=== PATIENT | female | born 1995 | race Caucasian/White ===

== ENCOUNTER 2020-06-27 14:37 | Outpatient (REF) | payer OTHER, SELFPAY | END 2020-06-27 14:38 | disposition home or self-care (01) | LOC: HO.LAB 14:37 | PROVIDERS: Visit Provider Nurse Practitioner Family | DX: Z20.828 Contact with and (suspected) exposure to other viral communicable diseases (principal) | CPT/HCPCS: U0003 ==

== ENCOUNTER 2021-12-07 21:47 | Emergency (ER) | payer OTHER, SELFPAY ==
[2021-12-07 21:49] VITALS: BP 125/79; PULSE 74; RESP 18; TEMP 36.9; O2SAT 99; BMI 26.5
--- NOTE | 2021-12-07 22:09 | ED.EAR ---
HPI - Ear Problem General Chief complaint: Ear Problems Stated complaint: ear infection Source: patient Mode of arrival: ambulatory Limitations: no limitations History of Present Illness HPI Narrative: 26-year-old female presents with right-sided ear pain for approximately 24 hours. MD Complaint: ear pain Location: right ear Duration: constant Severity: moderate Relieving factors: nothing Exacerbating factors: chewing and palpation Discharge from ear: no Treatment prior to arrival: none Related Data Home Medications Medication Instructions Recorded Confirmed budesonide-formoterol HFA 160 2 puff PO BID 05/18/20 01/04/21 mcg-4.5 mcg/actuation aerosol inhaler clonazepam 1 mg tablet 1 mg PO BID PRN 05/18/20 01/04/21 fluoxetine 10 mg capsule 10 mg PO DAILY 05/18/20 01/04/21 valacyclovir 500 mg tablet 500 mg PO DAILY 05/18/20 01/04/21 Previous Rx's Medication Instructions Recorded amoxicillin 875 mg-potassium 1 tab PO Q12H 7 Days #14 tab 12/07/21 clavulanate 125 mg tablet fluconazole 150 mg tablet 150 mg PO Q3D #2 tab 12/07/21 (Diflucan) Allergies Allergy/AdvReac Type Severity Reaction Status Date / Time hydrocodone [HYDROCODONE] Allergy Intermediate HIVES Verified 12/07/21 21:49 acetaminophen [From VICODIN] Allergy Unknown HIVES Verified 12/07/21 21:49 Hydrocodone Bitartrate Allergy Unknown hives Uncoded 12/07/21 21:49 Review of Systems Review of Systems: Constitutional: No Fever, No Chills ENT/Mouth: Positive right Ear Pain, No Hoarseness, No sore throat Eyes: No Eye Pain, No Swelling, No Redness, No Foreign Body Cardiovascular: No Chest Pain, No SOB Respiratory: No Cough, No Dyspnea Gastrointestinal: No Nausea, No Vomiting, No Diarrhea, No abdominal Pain Genitourinary: No Dysuria, No Hematuria Musculoskeletal: No joint pain, No Myalgias, No Joint Swelling Skin: No Skin lacerations, No rash Neuro: No Weakness, No Numbness, No Paresthesias, No Loss of Consciousness, No Dizziness, No Headache Psych: No Anxiety/Panic, No Depression Heme/Lymph: no easy bruising, no Lymphadenopathy Endocrine: No Polyuria, No Polydipsia Yes all other systems are reviewed and are negative [facility] Past Medical History Attestation statement: The following information was validated with the patient. Source: old records reviewed Social History Social History Advance Directives: No Advance Directives Information Provided: Yes Patient : No Physical Exam Vital Signs: Vital Signs: Last Vital Signs Temp 98.5 F 12/07/21 21:49 Pulse 74 12/07/21 21:49 Resp 18 12/07/21 21:49 BP 125/79 12/07/21 21:49 Pulse Ox 99 12/07/21 21:49 BMI result Body Mass Index 26.5 Appearance: Alert. Oriented X3. No acute distress. Eyes: Pupils equal, round and reactive to light. ENT: Pharynx normal. Right tympanic membrane bulging and erythematous. Left tympanic membrane intact. Neck: Normal inspection. Neck supple. No mastoid tenderness. Cervical lymphadenopathy. CVS: Normal heart rate and rhythm. Pulses normal. Respiratory: No respiratory distress. Breath sounds normal. Abdomen: Soft and nontender. Skin: Skin warm and dry. Normal skin color. Normal skin turgor. Extremities: No lower extremity edema. Gait well-balanced well coordinated. Neuro: No motor deficit. No sensory deficit. Cranial nerves 2-12 intact Course Course Course Narrative: 26-year-old female presents with right-sided stabbing ear pain for approximately 24 hours. Physical exam consistent with otitis media to the right side. Will treat with Augmentin. No mastoid tenderness. Afebrile, appears nontoxic. Patient verbalized understanding of and agrees to plan of care to discharge home. Verbalized understanding of signs and symptoms indicating need for emergent intervention MDM - Ear Differential Diagnosis Differential diagnosis: Likely otitis externa, otitis media, foreign body in ear, ruptured TM and cerumen impaction Medical Records Attestation: I reviewed the patient's medical records. Discharge Plan Discharge Clinical Impression: Otitis media Patient Disposition: Home, Self-Care Instructions: Ear Infection (ED) Additional Instructions: You were evaluated for ear pain. You have otitis media. Please take Augmentin 875 mg twice a day for the next 7 days. I prescribed Diflucan. Please follow the instructions. Take Tylenol and Motrin as needed for pain management Thank you for choosing this emergency department for evaluation. Please follow-up with primary care physician as needed. Return to the emergency department for any new, concerning, or worsening symptoms. Prescriptions: New amoxicillin-pot clavulanate 875-125 mg tablet 1 tab PO Q12H 7 Days Qty: 14 0RF fluconazole [Diflucan] 150 mg tablet 150 mg PO Q3D Qty: 2 1RF Rx Instructions: may repeat second dose 72 hrs after first dose if symptoms persist No Action clonazepam 1 mg tablet 1 mg PO BID PRN0RF fluoxetine 10 mg capsule 10 mg PO DAILY 0RF valacyclovir 500 mg tablet 500 mg PO DAILY 0RF budesonide-formoterol 160-4.5 mcg/actuation HFA aerosol inhaler 2 puff PO BID 0RF Interventions: ED Discharge Assessment Last Done: 12/07/21 23:08 Discharge Date/Time: 12/07/21 23:11
[2021-12-07] MEDS: Amoxicillin/Potassium Clav 875 MG TABLET PO (22:37)
== END 2021-12-07 23:11 | disposition home or self-care (01) ==
PROVIDERS: Emergency Provider Internal Medicine; PCP Internal Medicine
DX: H66.91 Otitis media, unspecified, right ear (principal)
CPT/HCPCS: 99283

== ENCOUNTER 2021-12-18 09:53 | Emergency (ER) | payer OTHER, SELFPAY ==
--- NOTE | ~2021-12-18 | XR_ITS ---
EXAMINATION: XR CHEST CLINICAL INFORMATION: Right-sided Rales COMPARISON: January 2020. TECHNIQUE: 2 views of the chest were obtained. FINDINGS: No significant abnormality is noted involving the heart, lungs, mediastinum, bony thorax or soft tissues. XR/XR chest 2V IMPRESSION: Unremarkable examination.
[2021-12-18 10:06] VITALS: BP 127/81; PULSE 85; RESP 18; TEMP 36.8; O2SAT 98; BMI 26.5
[2021-12-18 10:50] LABS: COVID-19 Test Negative (Negative)
[2021-12-18 10:51] LABS: IDNOW Serial# 9DB6401D; Influenza A Negative (Negative); Influenza B2 Negative (Negative)
--- NOTE | 2021-12-18 13:07 | ED.GENADULT ---
HPI - General Adult General Chief complaint: General Medical Stated complaint: covid symptoms Time Seen by Provider: 12/18/21 13:07 Source: patient Mode of arrival: ambulatory Limitations: no limitations History of Present Illness HPI narrative: patient with recent middle ear infection, while in [facility] she got URI. Patient now with sore throat and cough. She has tested negative at home Onset (ago): day(s) Severity: mild Pain Consistency: constant Associated symptoms: cough Related Data Home Medications Medication Instructions Recorded Confirmed budesonide-formoterol HFA 160 2 puff PO BID 05/18/20 01/04/21 mcg-4.5 mcg/actuation aerosol inhaler clonazepam 1 mg tablet 1 mg PO BID PRN 05/18/20 01/04/21 fluoxetine 10 mg capsule 10 mg PO DAILY 05/18/20 01/04/21 valacyclovir 500 mg tablet 500 mg PO DAILY 05/18/20 01/04/21 Previous Rx's Medication Instructions Recorded amoxicillin 875 mg-potassium 1 tab PO Q12H 7 Days #14 tab 12/07/21 clavulanate 125 mg tablet fluconazole 150 mg tablet 150 mg PO Q3D #2 tab 12/07/21 (Diflucan) naproxen 500 mg tablet (Naprosyn) 500 mg PO BID #20 tab 12/18/21 bflpbxeqbwsai-HX-droqoemhdfl 5 10 ml PO Q4H #120 ml 12/18/21 mg-10 mg-100 mg/5 mL oral liquid Allergies Allergy/AdvReac Type Severity Reaction Status Date / Time hydrocodone [HYDROCODONE] Allergy Intermediate HIVES Verified 12/07/21 21:49 acetaminophen [From VICODIN] Allergy Unknown HIVES Verified 12/07/21 21:49 Hydrocodone Bitartrate Allergy Unknown hives Uncoded 12/07/21 21:49 Review of Systems Constitutional: Constitutional: Reports no additional constitutional complaints Eyes: Eyes: Reports no additional eye complaints ENT: Denies dizziness Cardiovascular: Cardiovascular: Reports no additional cardiovascular complaints Respiratory: Respiratory: Reports as per HPI Gastrointestinal: Gastrointestinal: Reports no additional gastrointestinal complaints Genitourinary: Genitourinary: Reports no additional female genitourinary complaints Musculoskeletal: Musculoskeletal: Reports no additional musculoskeletal complaints Integumentary/Breasts: Skin/Breast: Denies rash Neurologic: Reports system reviewed and no additional complaints, except as documented, Denies dizziness and Denies Sensory deficit (Neuro) Psychiatric: Psychiatric: Denies anxiety [facility] Social History Social History Advance Directives: No Advance Directives Information Provided: No Physical Exam ED Vital Signs: Vital Signs - 24 hr 12/18/21 10:06 12/18/21 13:26 Temperature 98.3 F Pulse Rate 85 84 Respiratory Rate 18 18 Blood Pressure 127/81 Pulse Oximetry 98 BMI result Body Mass Index 26.5 Const General: healthy appearing Nutritional Appearance: average body habitus Orientation/consciousness: oriented to person and patient oriented x3 Limitations: no limitations HENMT Other: Bilateral tmj pain Head: Yes normal to inspection Ears: external ears normal General nose exam: Normal external nose present Mouth: Normal oral and palatal mucosa present and oropharynx normal Throat: Yes posterior oropharynx normal Eyes General: appearance normal, both eyes and all related structures Neck Neck: Yes normal visual inspection Chest Chest palpation & inspection: normal inspection of the chest Resp Other: right sided rales and rhonchi Cardio Jugular venous distension: no JVD Rate: regular rate Rhythm: regular rhythm Heart sounds: S1 normal heart sound present and S2 normal heart sound present GI Inspection: Yes normal to inspection Palpation (GI): Soft to palpation, nontender and No hepatosplenomegaly present Auscultation: normal bowel sounds General: Yes no CVA tenderness Back/Spine/Pelvis Back: no CVA tenderness Skin General skin exam: no rashes or lesions noted Neuro General: oriented to person and patient oriented x3 Cranial nerves: Yes CN's II-XII intact bilaterally Motor exam (neuro): 5/5 motor strength present throughout Sensory Exam: No Sensory deficit (Neuro) Extrem General: Yes normal to inspection Psych Appearance: grossly normal Course Reevaluation(s) Reevaluation #1: lungs improved, no pneumonia on xray, will dc on the albuterol MDI and robitussion and NSAIDS for the jaw pain Time: 13:46 Medical Decision Making Lab Data Labs: Lab Results 12/18/21 12/18/21 Range/Units 10:10 10:11 COVID-19 (YARI) Negative (Negative) COVID-19 Clin Com See Note Influenza Type A (KATY) Negative (Negative) Influenza Type B (KATY) Negative (Negative) Influenza A & B Note See Note Imaging Data Chest x-ray: Radiologist's impression: FINDINGS: No significant abnormality is noted involving the heart, lungs, mediastinum, bony thorax or soft tissues. XR/XR chest 2V IMPRESSION: Unremarkable examination. Discharge Plan Discharge Clinical Impression: Acute upper respiratory infection, Temporal mandibular joint disorder Patient Disposition: Home, Self-Care Instructions: Upper Respiratory Infection (ED), Temporomandibular Disorder (ED) Prescriptions: New naproxen [Naprosyn] 500 mg tablet 500 mg PO BID Qty: 20 0RF [id number] 5-10-100 mg/5 mL liquid 10 ml PO Q4H Qty: 120 0RF No Action amoxicillin-pot clavulanate 875-125 mg tablet 1 tab PO Q12H 7 Days Qty: 14 0RF fluconazole [Diflucan] 150 mg tablet 150 mg PO Q3D Qty: 2 1RF Rx Instructions: may repeat second dose 72 hrs after first dose if symptoms persist clonazepam 1 mg tablet 1 mg PO BID PRN0RF fluoxetine 10 mg capsule 10 mg PO DAILY 0RF valacyclovir 500 mg tablet 500 mg PO DAILY 0RF budesonide-formoterol 160-4.5 mcg/actuation HFA aerosol inhaler 2 puff PO BID 0RF Referrals: Rohan Galindo MD [Primary Care Provider] - 1 week Stand Alone Forms: Work/School Release
[2021-12-18 13:26] VITALS: PULSE 84; RESP 18; O2SAT 97
[2021-12-18] MEDS: Albuterol Sulfate 90 MCG 8 GM INHALER 4 PUFF INHALE (13:26)
== END 2021-12-18 13:50 | disposition home or self-care (01) ==
PROVIDERS: Emergency Provider Emergency Medicine; PCP Internal Medicine
DX: J06.9 Acute upper respiratory infection, unspecified (principal); M26.603 Bilateral temporomandibular joint disorder, unspecified; Z20.822 Contact with and (suspected) exposure to COVID-19
CPT/HCPCS: 71046; 87502; 87635; 94640; 99284

== ENCOUNTER 2022-01-06 12:00 | Outpatient (REF) | payer OTHER, SELFPAY ==
[2022-01-06 12:32] LABS: COVID-19 Test Negative (Negative); IDNOW Serial# 16C4AD1C
== END 2022-01-06 12:01 | disposition home or self-care (01) ==
LOC: HO.LAB 12:00
PROVIDERS: Visit Provider Internal Medicine
DX: Z20.822 Contact with and (suspected) exposure to COVID-19 (principal)
CPT/HCPCS: 87635; C9803

== ENCOUNTER 2023-01-15 10:10 | Emergency (ER) | payer OTHER, SELFPAY ==
[2023-01-15 10:17] VITALS: BP 120/85; PULSE 99; RESP 18; TEMP 35.9; O2SAT 98; BMI 24.0
[2023-01-15 10:56] LABS: MANUAL DIFF FLAG NO
[2023-01-15 10:58] LABS: Basophils Percent Auto 0.3 % (0-2); Eosinophils Percent Auto 0.2 % (0-4); Hematocrit 42.2 % (37.0-47.0); Hemoglobin 14.2 g/dl (12.0-16.0); Imm Gran Abs Auto 0.05 X10*3/uL (0.00-0.03); Imm Gran Pct Auto 0.4 % (0.0-0.4); Lymphocytes Absolute Auto 1.6 X10*3/uL (1.2-4.9); Lymphocytes Percent Auto 12.6 % (20-40); Mean Corpuscular HGB Conc 33.6 g/dl (31.0-35.0); Mean Corpuscular Hemoglobin 29.4 pg (27.0-33.0); Mean Corpuscular Volume 87.4 fL (80.0-98.0); Mean Platelet Volume 9.5 fL (9.4-12.3); Monocytes Absolute Auto 0.8 X10*3/uL (0.1-1.2); Monocytes Percent Auto 6.6 % (2-11); Neutrophils Percent Auto 79.9 % (45-73); Platelet Count 263 X10*3/uL (160-400); Red Blood Count 4.83 X10*6/uL (4.20-5.50); Red Cell Distribution Width 13.4 % (11.0-16.0); White Blood Count 12.5 X10*3/uL (4.8-10.8)
[2023-01-15 11:37] LABS: Anion Gap 12 (12-20); Blood Urea Nitrogen 7 mg/dL (9-16); Calcium 9.7 mg/dL (8.4-10.2); Carbon Dioxide 23 mmol/L (22-29); Chloride 106 mmol/L (96-108); Creatinine Clr Calc Pharmacy 93.2; Estimated Glomerular Filt Rate > 60; Glucose Random 94 mg/dL (60-115); Potassium 4.1 mmol/L (3.3-5.1); Sodium 137 mmol/L (135-145)
[2023-01-15 12:26] VITALS: BP 132/77; PULSE 82; RESP 16; TEMP 37.1; O2SAT 98
--- NOTE | 2023-01-15 12:35 | ED.NAVMDI ---
HPI - Nausea/Vomiting/Diarrhea General Chief complaint: Nausea/Vomiting/Diarrhea Stated complaint: 7 wks vomiting diarrhea Time Seen by Provider: 01/15/23 11:50 Source: patient Mode of arrival: ambulatory Limitations: no limitations History of Present Illness HPI Narrative: 27-year-old G 2p1 who is currently 7 weeks with last menstrual period of November 23 who presents to the ER for evaluation of intractable nausea, vomiting and epigastric pain for the last 2 weeks. She follows with OB at [facility] and was recently there for similar complaints. She was recently started on B6 and Unisom however only hot die picker the prescription last night sore 1st dose was last night. She states she has nausea and epigastric abdominal pain daily. It comes and goes. It feels like a ?metal ball.? She has been taking Tums for her epigastric pain with relief. She admits to taking 13 Tums last night for her pain. MD elicited complaint: nausea, vomiting and abdominal pain Onset (ago): week(s) Description of vomiting: food contents Associated nausea: Yes Associated abdominal pain: Yes Location of pain: epigastric Pain consistency: intermittent Severity: severe Quality: aching and sharp Exacerbating factors: eating Relieving factors: vomiting Associated symptoms: nausea/vomiting Related Data Home Medications Medication Instructions Recorded Confirmed budesonide-formoterol HFA 160 2 puff PO BID 05/18/20 01/04/21 mcg-4.5 mcg/actuation aerosol inhaler clonazepam 1 mg tablet 1 mg PO BID PRN 05/18/20 01/04/21 fluoxetine 10 mg capsule 10 mg PO DAILY 05/18/20 01/04/21 valacyclovir 500 mg tablet 500 mg PO DAILY 05/18/20 01/04/21 Previous Rx's Medication Instructions Recorded amoxicillin 875 mg-potassium 1 tab PO Q12H 7 days #14 tabs 12/07/21 clavulanate 125 mg tablet fluconazole 150 mg tablet 150 mg PO Q3D 2 doses #2 tabs 12/07/21 (Diflucan) naproxen 500 mg tablet (Naprosyn) 500 mg PO BID #20 tabs 12/18/21 iudmbjaqvfavk-IC-hxvnzvqwqgg 5 10 ml PO Q4H #120 mL 12/18/21 mg-10 mg-100 mg/5 mL oral liquid omeprazole 20 mg capsule,delayed 20 mg PO DAILY #14 caps 01/15/23 release Allergies Allergy/AdvReac Type Severity Reaction Status Date / Time hydrocodone [HYDROCODONE] Allergy Intermediate HIVES Verified 05/14/22 16:12 acetaminophen [From VICODIN] Allergy Unknown HIVES Verified 05/14/22 16:12 Hydrocodone Bitartrate Allergy Unknown hives Uncoded 05/14/22 16:12 Review of Systems Review of Systems: Yes all other systems are reviewed and are negative Gastrointestinal: Gastrointestinal: Reports nausea PMFSH Social History Social History Smoked in Last 30 Days: No Use of substances other than those prescribed or required for medical reasons: Yes Substance Use Type: Marijuana Last Used Substance: Weeks (ago) Advance Directives: No Advance Directives Information Provided: Yes Physical Exam Vital Signs: Vital Signs: Last Vital Signs Temp 98.0 F 01/15/23 14:20 Pulse 82 01/15/23 14:20 Resp 14 01/15/23 14:20 BP 116/66 01/15/23 14:20 Pulse Ox 100 01/15/23 14:20 O2 Del Method Room Air 01/15/23 14:20 BMI result Body Mass Index 24.0 Appearance: Alert. Oriented X3. No acute distress. Head: normocephalic, atraumatic. Eyes: Pupils equal, round and reactive to light. ENT: Pharynx normal. No tonsillar swelling or exudate. Neck: Normal inspection. Neck supple. CVS: Normal heart rate and rhythm. Pulses normal. Respiratory: No respiratory distress. Breath sounds normal. Abdomen: Soft with epigastric tenderness, no rebound or guarding. Normoactive bowel sounds. Pelvic deferred. Skin: Skin warm and dry. Normal skin color. Normal skin turgor. No rashes. Extremities: No lower extremity edema. No joint swelling. Neuro/psych: Oriented X 3. No motor deficit. No sensory deficit. CN II-XII intact. Normal speech and cognition. Medications Administered Discontinued Medications Generic Name Dose Route Start Last Admin Trade Name Freq PRN Reason Stop Dose Admin Sodium Chloride 1,000 mls @ 999 mls/hr 01/15/23 12:00 01/15/23 14:09 Ns IVCONT 01/15/23 13:00 Infused .Q1H1M KAMI Infusion Omeprazole 20 mg 01/15/23 13:58 01/15/23 14:10 Omeprazole 20 Mg Capsule. PO 01/15/23 13:59 20 mg ONCE ONE Administration Ondansetron HCl 4 mg 01/15/23 11:51 01/15/23 12:42 Ondansetron Hcl 4 Mg/2 Ml Vial IVPUSH 01/15/23 11:52 4 mg ONCE ONE Administration Medical Decision Making Medical Decision Making [facility] Narrative: 27-year-old female currently approximately 7 weeks presents with nausea, vomiting, epigastric pain. Lab workup today showing a mild leukocytosis, 12.5, most likely due to vomiting and reactive in nature.Her electrolytes and kidney function are normal. She feels dehydrated. She was given IV fluids and Zofran. She is tolerating p.o.. She was also given a PPI for GERD and epigastric pain. Pain is improved. She had no right upper quadrant tenderness on examination. She is stable for discharge home with dietary modifications, continuation of B6 and Unisom, will add PPI and have her follow-up with her OB. Patient is stable for discharge home and she agrees with plan. Differential Diagnosis Differential Diagnoses: The differential diagnosis associated with the presentation includes Hyperemesis gravidarum, normal nausea and vomiting in 1st trimester of , dehydration, electrolyte abnormality, hypercalcemia due to exogenous calcium intake. Lab Data [facility] Lab Attestation statement: I reviewed the patient's lab results. Mild leukocytosis, likely reactive due to vomiting. No evidence of dehydration or major metabolic derangement 01/15/23 10:39 01/15/23 10:39 Labs: Lab Results 01/15/23 01/15/23 01/15/23 Range/Units 10:39 10:39 14:18 WBC 12.5 H (4.8-10.8) X10*3/uL RBC 4.83 (4.20-5.50) X10*6/uL Hgb 14.2 (12.0-16.0) g/dl Hct 42.2 (37.0-47.0) % MCV 87.4 (80.0-98.0) fL MCH 29.4 (27.0-33.0) pg MCHC 33.6 (31.0-35.0) g/dl RDW 13.4 (11.0-16.0) % Plt Count 263 (160-400) X10*3/uL MPV 9.5 (9.4-12.3) fL Immature Gran % (Auto) 0.4 (0.0-0.4) % Neut % (Auto) 79.9 H (45-73) % Lymph % (Auto) 12.6 L (20-40) % Luce % (Auto) 6.6 (2-11) % Eos % (Auto) 0.2 (0-4) % Baso % (Auto) 0.3 (0-2) % Lymph # (Auto) 1.6 (1.2-4.9) X10*3/uL Luce # (Auto) 0.8 (0.1-1.2) X10*3/uL Eos # (Auto) 0.0 (0.0-0.4) X10*3/uL Baso # (Auto) 0.0 (0.0-0.2) X10*3/uL Abs Immat Gran (auto) 0.05 H (0.00-0.03) X10*3/uL Absolute Neuts (auto) 10.0 H (2.0-8.3) x10*3/uL Absolute Nucleated RBC 0.000 (0.0-0.012) X10*3/uL Nucleated RBC % (auto) 0.0 (0.0-0.2) /100WBC Sodium 137 (135-145) mmol/L Potassium 4.1 (3.3-5.1) mmol/L Chloride 106 (96-108) mmol/L Carbon Dioxide 23 (22-29) mmol/L Anion Gap 12 (12-20) BUN 7 L (9-16) mg/dL Creatinine 0.71 (0.5-1.4) mg/dL Estim Creat Clear Calc 93.2 Estimated GFR > 60 Random Glucose 94 (60-115) mg/dL Calcium 9.7 (8.4-10.2) mg/dL Urine Color Yellow Urine Appearance Clear Urine pH 6.5 (5.0-9.0) Ur Specific [place] 1.020 (1.005-1.025) Urine Protein Negative (Neg-Trace) mg/dL Urine Glucose (UA) Negative (Negative) mg/dL Urine Ketones 80 (Negative) mg/dL Urine Blood Negative (Negative) Urine Nitrite Negative (Negative) Ur Leukocyte Esterase Negative (Negative) External Record Review External record reviewed: Prior outpatient labs Prescription Management I considered prescription management with: Other (PPI) Critical Care Time Critical Care Time Critical Care Time: No Discharge Plan Discharge Clinical Impression: Nausea and vomiting during , Gastroesophageal reflux disease Patient Disposition: Home, Self-Care Instructions: Nausea and Vomiting in (ED), Gastroesophageal Reflux Disease (DC) Additional Instructions: Your lab workup today was unremarkable. Your urine test was negative for infection. Your tested for gonorrhea and chlamydia - IF YOU ARE POSITIVE, we will call you to start treatment Continue B6 and Unisom every night to help with nausea Eat crackers right when you wake up Start the prescribed antacid medication as prescribed, take 1st thing in the morning Avoid foods that are greasy, acidic and spicy Continue TUMS as needed but only as the package instructs. Follow up with your SENIOR ANALYST DEVELOPER If you develop new or worsening symptoms call 911 or come back to the ER for further evaluation. Prescriptions: New omeprazole 20 mg capsule,delayed release(DR/EC) 20 mg PO DAILY Qty: 14 0RF No Action naproxen [Naprosyn] 500 mg tablet 500 mg PO BID Qty: 20 0RF snpwgldhaugwh-QW-jutxbotqrni 5-10-100 mg/5 mL liquid 10 ml PO Q4H Qty: 120 0RF amoxicillin-pot clavulanate 875-125 mg tablet 1 tab PO Q12H 7 Days Qty: 14 0RF fluconazole [Diflucan] 150 mg tablet 150 mg PO Q3D Qty: 2 1RF Rx Instructions: may repeat second dose 72 hrs after first dose if symptoms persist clonazepam 1 mg tablet 1 mg PO BID PRN fluoxetine 10 mg capsule 10 mg PO DAILY valacyclovir 500 mg tablet 500 mg PO DAILY budesonide-formoterol 160-4.5 mcg/actuation HFA aerosol inhaler 2 puff PO BID Referrals: Rohan Galindo MD [Primary Care Provider] - Stand Alone Forms: Work/School Release
[2023-01-15] MEDS: ondansetron HCL 4 MG/2 ML VIAL IVPUSH (12:42)
[2023-01-15] MEDS: 0.9 % Sodium Chloride 1,000 ML 999 ML IVCONT (12:42)
[2023-01-15] MEDS: Omeprazole 20 MG CAPSULE.DR PO (14:10)
[2023-01-15 14:20] VITALS: BP 116/66; PULSE 82; RESP 14; TEMP 36.7; O2SAT 100
[2023-01-15 14:28] LABS: Appearance Urine Clear; Color Urine Yellow; Glucose Urine UA Negative (Negative); Leukocyte Esterase Urine Negative (Negative); Nitrite Urine Negative (Negative); PH 6.5 (5.0-9.0); Urine Blood Negative (Negative); Urine Ketones 80 mg/dL (Negative); Urine Protein Negative (Neg-Trace)
[2023-01-15 15:09] VITALS: BP 119/74; PULSE 89; RESP 16; TEMP 37; O2SAT 100
[2023-01-15 16:20] LABS: CT PCR NOT DETECTED (Not Detect.); NG PCR NOT DETECTED (Not Detect.)
== END 2023-01-15 15:21 | disposition home or self-care (01) ==
PROVIDERS: Physician Assistant; Emergency Provider Emergency Medicine; PCP Internal Medicine
DX: O21.0 Mild hyperemesis gravidarum (principal); R10.13 Epigastric pain; Z3A.01 Less than 8 weeks gestation of pregnancy; Z79.899 Other long term (current) drug therapy
CPT/HCPCS: 0353U; 36415; 80048; 81003; 85025; 96361; 96374; 99284; J2405

== ENCOUNTER 2023-02-02 17:23 | Outpatient (REF) | payer OTHER, SELFPAY ==
[2023-02-02 18:12] LABS: Influenza A PCR NEGATIVE (Negative); Influenza B PCR NEGATIVE (Negative); Resp Syncy Virus RNA Qual PCR NEGATIVE (Negative); SARS COV2 PCR INHOUSE NEGATIVE (Negative)
== END 2023-02-02 17:24 | disposition home or self-care (01) ==
LOC: HO.LNP 17:23
PROVIDERS: Visit Provider Internal Medicine
DX: Z20.822 Contact with and (suspected) exposure to COVID-19 (principal); R43.9 Unspecified disturbances of smell and taste
CPT/HCPCS: 0241U

== ENCOUNTER 2023-05-29 13:00 | Outpatient (AMB) | payer OTHER, SELFPAY ==
[2023-05-29 13:04] VITALS: BP 128/74; BMI 31.5
--- NOTE | 2023-05-29 13:04 | MHC.PC.OV ---
Vital Signs 05/29/23 13:04 Height 5 ft 2 in Weight 172 lb 2 oz BMI 31.5 BP 128/74 Blood Pressure Location Lt brachial Position Sitting Intake Visit Reasons: ongoing back pain Allergies hydrocodone [HYDROCODONE] Allergy (Intermediate, Verified 05/29/23 13:06) HIVES acetaminophen [From VICODIN] Allergy (Unknown, Verified 05/29/23 13:06) HIVES Hydrocodone Bitartrate Allergy (Unknown, Uncoded 02/02/23 14:48) hives Tobacco use date assessed: 05/29/23 Dental Screening Dental Screen Date: 05/29/23 Did you have a dental visit in the last 12 months?: Yes Did you have a dental problem in the last 6 months where you did not have access to dental care?: No Was dental information given to patient?: Patient has dentist HPI ongoing back pain HPI Details Patient is 27-year-old female came in today to talk about lower back pain which has been flaring up off and on requiring her to go to emergency room in between. Patient is currently and is expecting a baby 08/30/2023 Patient says that last she had similar problem but this time it is worse. Currently patient is doing 3 jobs 1 is as [employer] and other is at [employer], patient says that she is going to let go of her 3rd job But it is getting difficult for her to continue working because of the pain. Patient says that when she stands up for prolonged periods of time or sit down for prolonged beers of time the pain gets unbearable. 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 She will bring in [facility] paperwork to fill. Pain is located lower lumbar area sacral and coccyx area, and is severe in intensity Pain is nonradiating. Due to we cannot investigate at this time But after we will refer patient to a pain management or a back specialist. [facility] Social History Housing: Apartment Patient Tobacco Use Status: Former Tobacco user e-Cigarette/Vaping Use: Never Used Substance Use Type: Marijuana Current occupational status: employed Cognitive needs: No Hearing needs: No Vision needs: No Questionnaire PHQ-9 Over the last 2 weeks, how often have you been bothered by any of the following problems? 25495 - PHQ-9 Billing: Patient declined-do not bill Source: Developed by Drs. Jeronimo Morin, Raine Smith, Campbell Hernandez and colleagues, with an educational tutu from [employer]. SHELDON-7 AMB Questionnaire SHELDON-7 Date SHELDON - 7 assessed: 05/29/23 Source: Developed by Raine Miles Kurt Kroenke and colleagues, with an educational tutu from [employer]. Review of Systems Const Denies chills and Denies fever(s) ENT Denies epistaxis and Denies nasal discharge Card Denies chest pain Resp Denies chest congestion, Denies cough and Denies hemoptysis GI Denies diarrhea and Denies nausea Skin/Breast Denies rash Neuro Reports no additional complaints Psych Reports no additional complaints Endo Reports no additional complaints Physical exam (Primary Care) Vital Signs: Last Vital Signs BP 128/74 05/29/23 13:04 BMI result Body Mass Index 31.5 Tobacco/Smoking Status: Tobacco use Status Tobacco use date assessed 05/29/23 05/29/23 13:11 Patient Tobacco Use Status Former Tobacco user 05/29/23 13:11 e-Cigarette/Vaping Use Never Used 05/29/23 13:11 Const General: cooperative, comfortable and no acute distress Orientation/consciousness: patient oriented x3 HENMT Head: Yes normocephalic Eyes General: appearance normal, both eyes and all related structures Neck Neck: Yes supple Resp Effort & Inspection: normal respiratory effort, no cough and no stridor Back/Spine/Pelvis Back/spine/pelvis image: 1. Site of pain, flexion is intact but with soreness Straight leg negative bilateral Skin General skin exam: turgor normal Neuro Other: Motor sensory intact General: patient oriented x3, tone normal, moves all extremities and deep tendon reflexes 2+ bilaterally Extrem Right lower extremity: no edema Left lower extremity: no edema Assessment and Plan Assessment & Plan (1) : Code(s): Z34.90 - Encounter for supervision of normal , unspecified, unspecified trimester Qualifiers: Weeks of gestation: unspecified Qualified Code(s): Z34.90 - Encounter for supervision of normal , unspecified, unspecified trimester (2) Lumbar pain: Code(s): M54.50 - Low back pain, unspecified (3) Sacral pain: Code(s): M53.3 - Sacrococcygeal disorders, not elsewhere classified (4) Coccyx pain: Code(s): M53.3 - Sacrococcygeal disorders, not elsewhere classified Plan Patient is 27-year-old female came in today to talk about lower back pain which has been flaring up off and on requiring her to go to emergency room in between. Patient is currently and is expecting a baby 08/30/2023 Patient says that last she had similar problem but this time it is worse. Currently patient is doing 3 jobs 1 is as [employer] and other is at [employer], patient says that she is going to let go of her 3rd job But it is getting difficult for her to continue working because of the pain. Patient says that when she stands up for prolonged periods of time or sit down for prolonged beers of time the pain gets unbearable. 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 She will bring in [facility] paperwork to fill. Pain is located lower lumbar area sacral and coccyx area, and is severe in intensity Pain is nonradiating. Due to we cannot investigate at this time But after we will refer patient to a pain management or a back specialist. There is no bowel or bladder issue Coding Level of Care Code Est Pt Level 3 (07000) Diagnoses , unspecified gestational age Z34.90 Weeks of gestation: unspecified Lumbar pain M54.50 Sacral pain M53.3 Coccyx pain M53.3
== END 2023-05-29 13:25 | disposition home or self-care (01) ==
PROVIDERS: PCP Internal Medicine; Visit Provider Internal Medicine
DX: Z34.90 Encounter for supervision of normal pregnancy, unspecified, unspecified trimester (principal); M54.50 Low back pain, unspecified; M53.3 Sacrococcygeal disorders, not elsewhere classified
CPT/HCPCS: 99213

== ENCOUNTER 2023-06-24 13:03 | Outpatient (AMB) | payer OTHER, SELFPAY ==
[2023-06-24 13:09] VITALS: BP 112/58; PULSE 90; O2SAT 91; BMI 33.8
--- NOTE | 2023-06-24 13:09 | MHC.PC.OV ---
Vital Signs 06/24/23 13:09 Height 5 ft 2 in Weight 185 lb BMI 33.8 BP 112/58 L Blood Pressure Location Rt brachial Position Sitting Pulse 90 Pulse Source Pulse Oximeter Pulse Oximetry (%) 91 L Oxygen Delivery Method Room Air Intake Visit Reasons: FMLA Forms~ ( rescheduled) Allergies hydrocodone [HYDROCODONE] Allergy (Intermediate, Verified 06/24/23 13:10) HIVES acetaminophen [From VICODIN] Allergy (Unknown, Verified 06/24/23 13:10) HIVES Hydrocodone Bitartrate Allergy (Unknown, Uncoded 02/02/23 14:48) hives Medication List - Last Reconciled 06/24/23 by Rohan Galindo MD [prenatals PO] valacyclovir 500 mg PO DAILY Tobacco use date assessed: 06/24/23 Dental Screening Dental Screen Date: 06/24/23 Did you have a dental visit in the last 12 months?: Yes Did you have a dental problem in the last 6 months where you did not have access to dental care?: No Was dental information given to patient?: Patient has dentist HPI FMLA Forms~ ( rescheduled) HPI Details Patient is 27-year-old female who is 30 weeks Expected date of delivery is 08/30/2023 Patient is suffering from severe coccyx pain She would like to have paperwork filled so she can take some time off from work. Patient also have 8 weeks of banding time after delivery Paperwork filled from 05/29/2023 till 11/02/2023 [facility] Housing: Apartment Patient Tobacco Use Status: Former Tobacco user e-Cigarette/Vaping Use: Never Used Substance Use Type: Marijuana Current occupational status: employed Cognitive needs: No Hearing needs: No Vision needs: No Questionnaire PHQ-9 Over the last 2 weeks, how often have you been bothered by any of the following problems? 1. Little interest or pleasure in doing things: not at all 2. Feeling down, depressed, or hopeless: not at all 3. Trouble falling or staying asleep, or sleeping too much: not at all 4. Feeling tired or having little energy: not at all 5. Poor appetite or overeating: not at all 6. Feeling bad about yourself - or that you are a failure or have let yourself or your family down: not at all 7. Trouble concentrating on things, such as reading the newspaper or watching television: several days 8. Moving or speaking so slowly that other people could have noticed. Or the opposite - being so fidgety or restless that you have been moving around a lot more than usual: not at all 9. Thoughts that you would be better off or of hurting yourself in some way: not at all Total score: 1 Depression Screening Interpretation: Negative Depression Screening Done: Yes 94312 - PHQ-9 Billing: Yes Source: Developed by Drs. Jeronimo Morin, Raine Smith, Campbell Hernandez and colleagues, with an educational tutu from [employer]. SHELDON-7 AMB Questionnaire SHELDON-7 Date SHELDON - 7 assessed: 05/29/23 Source: Developed by Drs. Jeronimo Morin, Raine Smith, Campbell Hernandez and colleagues, with an educational tutu from [employer]. Review of Systems Const Denies chills and Denies fever(s) ENT Denies epistaxis and Denies nasal discharge Card Denies chest pain Resp Denies chest congestion, Denies cough and Denies hemoptysis GI Denies diarrhea and Denies nausea Skin/Breast Denies rash Neuro Reports no additional complaints Psych Reports no additional complaints Endo Reports no additional complaints Physical exam (Primary Care) Vital Signs: Last Vital Signs Pulse 90 06/24/23 13:09 BP 112/58 L 06/24/23 13:09 Pulse Ox 91 L 06/24/23 13:09 Oxygen Delivery Method Room Air 06/24/23 13:09 BMI result Body Mass Index 33.8 Tobacco/Smoking Status: Tobacco use Status Tobacco use date assessed 06/24/23 06/24/23 13:11 Patient Tobacco Use Status Former Tobacco user 06/24/23 13:11 e-Cigarette/Vaping Use Never Used 06/24/23 13:11 Depression Screening Interpretation: Negative Const General: cooperative, comfortable and no acute distress Orientation/consciousness: patient oriented x3 HENMT Head: Yes normocephalic Eyes General: appearance normal, both eyes and all related structures Neck Neck: Yes supple Resp Effort & Inspection: normal respiratory effort, no cough and no stridor Cardio Rhythm: regular rhythm Heart sounds: S1 normal heart sound present and S2 normal heart sound present Skin General skin exam: turgor normal Neuro General: patient oriented x3, tone normal and moves all extremities Extrem Right lower extremity: no edema Left lower extremity: no edema Assessment and Plan Assessment & Plan (1) : Code(s): Z34.90 - Encounter for supervision of normal , unspecified, unspecified trimester Qualifiers: Weeks of gestation: 30 weeks Qualified Code(s): Z3A.30 - 30 weeks gestation of (2) Lumbar pain: Code(s): M54.50 - Low back pain, unspecified (3) Sacral pain: Code(s): M53.3 - Sacrococcygeal disorders, not elsewhere classified (4) Coccyx pain: Code(s): M53.3 - Sacrococcygeal disorders, not elsewhere classified Plan Patient is 27-year-old female who is 30 weeks Expected date of delivery is 08/30/2023 Patient is suffering from severe coccyx pain She would like to have paperwork filled so she can take some time off from work. Patient also have 8 weeks of banding time after delivery Paperwork filled from 05/29/2023 till 11/02/2023 Coding Level of Care Code Est Pt Level 4 (55305) Diagnoses 30 weeks gestation of Z3A.30 Weeks of gestation: 30 weeks Lumbar pain M54.50 Sacral pain M53.3 Coccyx pain M53.3
== END 2023-06-24 13:40 | disposition home or self-care (01) ==
PROVIDERS: PCP Internal Medicine; Visit Provider Internal Medicine
DX: Z3A.30 30 weeks gestation of pregnancy (principal); M54.50 Low back pain, unspecified; M53.3 Sacrococcygeal disorders, not elsewhere classified
CPT/HCPCS: 99214

== ENCOUNTER 2024-06-21 12:31 | Outpatient (AMB) | payer OTHER, SELFPAY ==
--- NOTE | 2024-06-21 13:13 | MHC.OFFWIV ---
Intake Vital Signs 06/21/24 13:15 Height 5 ft 2 in Weight 158 lb 7 oz BMI 29.0 BP 112/74 Blood Pressure Location Rt brachial Position Sitting Pulse 74 Pulse Source Pulse Oximeter Pulse Oximetry (%) 98 Oxygen Delivery Method Room Air Intake Visit Reasons: EP-neck rash Intake Note: Patient here for rash on the back of her neck. she states she found her boyfriend scratching his genitals with her hair brush and washed it very thoroughly and on thursday started with red spots and has fluid that leaks. Patient Tobacco Use Status: Former Tobacco user Allergies hydrocodone [HYDROCODONE] Allergy (Intermediate, Verified 06/21/24 13:19) HIVES acetaminophen [From VICODIN] Allergy (Unknown, Verified 06/21/24 13:19) HIVES Hydrocodone Bitartrate Allergy (Unknown, Uncoded 06/21/24 13:19) hives Do you need a note to return to daycare/school/sports/work: No HPI HPI Comments History of Present Illness Details The patient is a 28-year-old female presenting with a rash. The rash began approximately two to three days ago and originated in the hairline at the back of the neck. It initially appeared as a small scabbed area, which the patient picked at, leading to the spread of the rash. 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 The patient reported the occurrence of swollen lymph nodes with pain, for which she visited a hospital on Thursday last week; however, fever or other typical symptoms were absent, and no testing was done. The rash began afterward, with additional concerns linked to the rash potentially being a heat rash or psoriasis as per online search results. The rash is not intensely itchy and does not feature vesicles, leading to a reduced likelihood of a herpes-related condition. The patient detailed a specific incident in using a hairbrush that had also been used by her partner for itching, raising concerns about potential spread. There is no previous history of psoriasis or similar dermatological issues. Management to date includes peroxide washing of the implicated hairbrush. [facility] Social History Housing: Apartment Patient Tobacco Use Status: Former Tobacco user e-Cigarette/Vaping Use: Never Used Substance Use Type: Marijuana Current occupational status: employed Cognitive needs: No Hearing needs: No Vision needs: No Review of Systems Const All systems reviewed & are unremarkable except as noted in HPI and below Physical Exam Vital Signs: Last Vital Signs Pulse 74 06/21/24 13:15 BP 112/74 06/21/24 13:15 Pulse Ox 98 06/21/24 13:15 Oxygen Delivery Method Room Air 06/21/24 13:15 BMI result Body Mass Index 29.0 Const General: cooperative, healthy appearing, comfortable, no acute distress and well developed Orientation/consciousness: patient oriented x3 Limitations: no limitations HEENT Head: Yes normal to inspection Neck Neck: Yes normal visual inspection and Yes supple Skin Other: - Skin- Rash noted in the hairline at the back of the neck, 3cm round patch of pink and dry skin, left-midline area. Different macular-papular rash with some scabbing and irritated without vesicles or other signs of infection noted. Neuro General: patient oriented x3 Assessment & Plan Assessment & Plan (1) Psoriasis: Code(s): L40.9 - Psoriasis, unspecified Plan: - Psoriasis: Initiate treatment with a prescription strength topical steroid cream (Triamcinolone) to be applied to the affected neck area. Monitor for improvement over a 2 to 3-week time frame. If no improvement is noted or if the rash worsens, the patient should follow up with her primary care physician, Dr. Blankenship, or consider a dermatological consultation for further evaluation and management. - Rash, unspecified etiology: Advise the application of an [id number] antibiotic ointment, such as Neosporin, on the affected areas of the back. Emphasize the importance of maintaining cleanliness and dryness of the areas, and instruct the patient to refrain from picking at the rash to prevent further irritation and potential scarring. Reassure the patient of the low likelihood of a contagious process based on clinical assessment. Patient was informed and verbally consented to the use of an ambient scribe for clinic note documentation during this visit. Medications: New triamcinolone acetonide 0.1% 1 appl topical BID 30 grams 0RF Coding Level of Care Code Est Pt Level 3 (55813) Diagnoses Psoriasis L40.9
[2024-06-21 13:15] VITALS: BP 112/74; PULSE 74; O2SAT 98; BMI 29.0
== END 2024-06-21 13:54 | disposition home or self-care (01) ==
PROVIDERS: PCP Internal Medicine; Visit Provider Physician Assistant
DX: L40.9 Psoriasis, unspecified (principal)

== ENCOUNTER → 2024-06-21 12:31 | Outpatient (BNVA) | payer OTHER, SELFPAY | PROVIDERS: PCP Internal Medicine; Visit Provider Physician Assistant | DX: L40.9 Psoriasis, unspecified (principal) | CPT/HCPCS: 99212 ==

== ENCOUNTER 2025-02-02 08:32 | Outpatient (AMB) | payer OTHER, SELFPAY ==
--- NOTE | 2025-02-02 09:58 | MHC.PC.OV ---
Intake Visit Reasons: Review Tspot testing needed, FMLA Allergies hydrocodone (HYDROCODONE) Allergy (Intermediate, Verified 06/21/24 13:19) HIVES acetaminophen (From VICODIN) Allergy (Unknown, Verified 06/21/24 13:19) HIVES Hydrocodone Bitartrate Allergy (Unknown, Uncoded 06/21/24 13:19) hives Medication List - Last Reconciled 02/02/25 by Rohan Galindo MD [prenatals PO] triamcinolone acetonide 0.1% 1 appl topical BID valacyclovir 500 mg PO DAILY Tobacco use date assessed: 06/24/23 Dental Screening Dental Screen Date: 06/24/23 HPI Review Tspot testing needed, FMLA HPI Details History - The patient is a 29-year-old female presenting with the need for latent TB testing. - The patient's partner, who is currently incarcerated, tested positive for latent TB and the patient was only made aware of his diagnosis recently. - The partner has known about his TB status since 2014, but this information was disclosed to the patient during his current incarceration, with two remaining years. - The patient and her children have had contact with the partner when he was out of incarceration. - Given the potential exposure to TB, diagnostic testing for the patient and her children was initiated as advised by their healthcare providers. Social History: - Family status: The patient has multiple children, and the father of at least one of her children is currently incarcerated. - The patient is currently Problem List - Potential Latent Tuberculosis (TB) exposure Patient Instructions - Schedule and complete blood testing for TB.abd STD screening Review of Systems - General: No fever no chills - Neurological: No headaches no dizziness - Ear nose throat: No sore throat no hearing difficulty no ear pain - Cardiovascular: No syncope, no chest pain, no palpitations - Gastrointestinal: No nausea vomiting or diarrhea [facility] Social History Housing: Apartment Patient Tobacco Use Status: Former Tobacco user e-Cigarette/Vaping Use: Never Used Substance Use Type: Marijuana Current occupational status: employed Cognitive needs: No Hearing needs: No Vision needs: No Questionnaire SHELDON-7 AMB Questionnaire SHELDON-7 Date SHELDON - 7 assessed: 05/29/23 Source: Developed by Drs. Jeronimo Morin, Raine B.Campbell Swift and colleagues, with an educational tutu from [employer]. Physical exam (Primary Care) Tobacco/Smoking Status: Tobacco use Status Tobacco use date assessed 06/24/23 02/02/25 09:58 Patient Tobacco Use Status Former Tobacco user 02/02/25 09:58 e-Cigarette/Vaping Use Never Used 02/02/25 09:58 Telehealth Telehealth Telehealth Platform: [employer] Location of provider rendering services: practice address Location of patient: address on file Patient Identification confirmed using: Name, : Yes Telehealth method: video Patient verbally consented to treatment: Yes Patient verbally consented to billing insurance company: Yes Patient informed of any privacy concerns related to visit: Yes Minutes spent on Phone/Video with Pt.: 13 Coding Level of Care Code Tele Est Pt Level 3 (64515) Diagnoses Exposure to TB Z20.1 STD exposure Z20.2 Assessment & Plan Assessment & Plan (1) Exposure to TB: Code(s): Z20.1 - Contact with and (suspected) exposure to tuberculosis Category: Medical (2) STD exposure: Code(s): Z20.2 - Contact with and (suspected) exposure to infections with a predominantly sexual mode of transmission Category: Medical Plan History - The patient is a 29-year-old female presenting with the need for latent TB testing. - The patient's partner, who is currently incarcerated, tested positive for latent TB and the patient was only made aware of his diagnosis recently. - The partner has known about his TB status since 2014, but this information was disclosed to the patient during his current incarceration, with two remaining years. - The patient and her children have had contact with the partner when he was out of incarceration. - Given the potential exposure to TB, diagnostic testing for the patient and her children was initiated as advised by their healthcare providers. Social History: - Family status: The patient has multiple children, and the father of at least one of her children is currently incarcerated. - The patient is currently Problem List - Potential Latent Tuberculosis (TB) exposure Patient Instructions - Schedule and complete blood testing for TB.abd STD screening Orders: Orders Hepatitis B Surface Antibody Today Z20.1 - Contact with and (suspected) exposure to tuberculosis, Z20.2 - Contact with and (suspected) exposure to infections with a predominantly sexual mode of transmission Syphilis Screen Today Z20.1 - Contact with and (suspected) exposure to tuberculosis, Z20.2 - Contact with and (suspected) exposure to infections with a predominantly sexual mode of transmission T Spot TB Today Z20.1 - Contact with and (suspected) exposure to tuberculosis, Z20.2 - Contact with and (suspected) exposure to infections with a predominantly sexual mode of transmission Hepatitis C Antibody Today Z20.1 - Contact with and (suspected) exposure to tuberculosis, Z20.2 - Contact with and (suspected) exposure to infections with a predominantly sexual mode of transmission HIV Ab/Ag Today Z20.1 - Contact with and (suspected) exposure to tuberculosis, Z20.2 - Contact with and (suspected) exposure to infections with a predominantly sexual mode of transmission Herpes Simplex Virus Ab IgG Today Z20.1 - Contact with and (suspected) exposure to tuberculosis, Z20.2 - Contact with and (suspected) exposure to infections with a predominantly sexual mode of transmission
== END 2025-02-02 10:26 | disposition home or self-care (01) ==
LOC: HO.HMCC 08:32
PROVIDERS: PCP Internal Medicine; Visit Provider Internal Medicine
DX: Z20.1 Contact with and (suspected) exposure to tuberculosis (principal); Z20.2 Contact with and (suspected) exposure to infections with a predominantly sexual mode of transmission